=== PATIENT | female | born 1965 | race African-American/Black ===

== ENCOUNTER 2017-09-05 10:55 | Emergency (ER) | payer OTHER ==
[~2017-09-05] VITALS: Ht 162.6 cm; Wt 109.1 kg
[2017-09-05] MEDS ORDERED: METF500T4 PO (12:14)
[2017-09-05] MEDS ORDERED: FENO160 PO (12:14)
[2017-09-05] MEDS ORDERED: LEVO200 PO (12:14)
[2017-09-05] MEDS ORDERED: LUPR3.75 IM (12:14)
[2017-09-05] MEDS ORDERED: DULA1.5P IM (12:15)
[2017-09-05] MEDS ORDERED: PRAZ5 PO (12:15)
[2017-09-05] MEDS ORDERED: HYDR25TA PO (12:15)
[2017-09-05] MEDS ORDERED: FERR-89 PO (12:15)
[2017-09-05] MEDS ORDERED: CETI-290 PO (12:15)
[2017-09-05] MEDS ORDERED: ESCI20TA PO (12:15)
[2017-09-05] MEDS ORDERED: ZOLP5 PO (12:15)
[2017-09-05] MEDS ORDERED: ASPI-1182 PO (12:15)
[2017-09-05] MEDS ORDERED: INSU300I SQ (12:15)
[2017-09-05] MEDS ORDERED: OXYB5XL PO (12:15)
[2017-09-05] MEDS ORDERED: GABA-531 PO (12:15)
[2017-09-05] MEDS ORDERED: METOCLOPRAMIDE HCL 5 MG/ML 2 ML VIAL IVP ONE (12:30)
[2017-09-05] MEDS ORDERED: KETOROLAC TROMETHAMINE 30 MG/ML VIAL IVP ONE (12:30)
[2017-09-05] MEDS ORDERED: SODIUM CHLORIDE 0.9% 1,000 ML IV ONE ×2 (12:30→13:15)
[2017-09-05 12:47] LABS: BASOPHILS % (AUTO) 0.8 % (0.0-2.0); EOSINOPHILS % (AUTO) 2.3 % (1.0-6.0); HEMOGLOBIN 13.5 g/dL (12.0-16.0); LYMPHOCYTES # (AUTO) 1.2 K/uL (1.0-4.8); LYMPHOCYTES % (AUTO) 12.2 % (22.0-44.0); MEAN CORPUSCULAR HEMOGLOBIN 28.8 pg (26.0-34.0); MEAN CORPUSCULAR HGB CONC 33.9 G/dL (31.0-37.0); MEAN CORPUSCULAR VOLUME 85 fL (80-100); MONOCYTES # (AUTO) 0.3 K/uL (0.1-1.0); MONOCYTES % (AUTO) 3.6 % (2.0-9.0); NEUTROPHILS # (AUTO) 7.7 K/uL (1.8-7.7); NEUTROPHILS % (AUTO) 81.1 % (40.0-70.0); PLATELET COUNT (AUTO) 332 K/uL (150-450); RED BLOOD CELL COUNT(AUTO) 4.69 MIL/uL (4.00-5.20); RED CELL DISTRIBUTION WIDTH 13.6 % (11.5-14.5)
[2017-09-05 12:49] LABS: APPEARANCE,URINE CLOUDY (CLEAR); BILIRUBIN,URINE NEGATIVE (NEGATIVE); GLUCOSE, URINE (UA) >=1000 mg/dL (NEGATIVE); KETONES,URINE TRACE mg/dL (NEGATIVE); LEUKOCYTE ESTERASE ,URINE SMALL (NEGATIVE); NITRATE,URINE NEGATIVE (NEGATIVE); OCCULT BLOOD,URINE TRACE (NEGATIVE); PROTEIN,URINE SEE CONFIRM (NEGATIVE); UROBILINOGEN,URINE 0.2 mg/dL (<=1.0)
[2017-09-05 12:57] LABS: SULFOSALICYLIC ACID,URINE Trace (Negative)
[2017-09-05 12:59] LABS: BACTERIA,URINE Few /HPF (None Seen); RBC,URINE 0-2 /HPF (0-2); SQUAMOUS EPITHELIAL CELL,UR Moderate /LPF (None Seen); WBC,URINE 26-50 /HPF (0-5)
[2017-09-05 13:03] LABS: ALBUMIN 2.9 g/dL (3.4-5.0); ALKALINE PHOSPHATASE 129 U/L (46-116); ANION GAP 16 mmol/L (8-16); BILIRUBIN,TOTAL 0.4 mg/dL (0.1-1.0); CALCIUM, TOTAL 8.5 mg/dL (8.8-10.5); CARBON DIOXIDE 21 mmol/L (22-29); CHLORIDE 85 mmol/L (98-107); CREATININE 1.11 mg/dL (0.60-1.30); GLOMERULAR FILTR. RATE CALC > 60 mL/min (>60); POTASSIUM 4.2 mmol/L (3.5-5.1); TOTAL PROTEIN, SERUM 7.9 g/dL (6.4-8.2); UREA NITROGEN, BLOOD 15 mg/dL (7-18)
[2017-09-05 13:06] LABS: GLUCOSE,RANDOM 531 mg/dL (70-110); SODIUM SERUM 122 mmol/L (136-145)
[2017-09-05] MEDS ORDERED: INSULIN REGULAR, HUMAN 100 UNITS/ML IVP ONE (13:15)
[2017-09-05 13:21] LABS: ALANINE AMINOTRANSFERASE 48 U/L (12-78); ASPARTATE AMINOTRANSFERASE 83 U/L (15-37)
[2017-09-05 13:23] LABS: B-TYPE NATRIURETIC PEPTIDE 39 pg/mL (0-100)
[2017-09-05 14:35] LABS: ANION GAP 11 mmol/L (8-16); CALCIUM, TOTAL 7.8 mg/dL (8.8-10.5); CARBON DIOXIDE 28 mmol/L (22-29); CHLORIDE 91 mmol/L (98-107); CREATININE 1.09 mg/dL (0.60-1.30); GLOMERULAR FILTR. RATE CALC > 60 mL/min (>60); GLUCOSE,RANDOM 394 mg/dL (70-110); SODIUM SERUM 130 mmol/L (136-145); UREA NITROGEN, BLOOD 14 mg/dL (7-18)
[2017-09-05 14:37] LABS: POTASSIUM 2.7 mmol/L (3.5-5.1)
[2017-09-05] MEDS ORDERED: POTASSIUM CHLORIDE 40 MEQ in SODIUM CHLORIDE 0.45% 1,000 ML IV ONE (15:15)
[2017-09-05] MEDS ORDERED: POTASSIUM CHLORIDE 20 MEQ ER TABLET PO ONE (15:15)
[2017-09-05 15:28] LABS: GLUCOSE,POINT OF CARE 351 MG/DL (70-110)
[2017-09-05] MEDS ORDERED: HYDROCODONE/ACETAMINOPHEN 5-325 MG TABLET PO ONE (16:00)
[2017-09-05] MEDS ORDERED: ACETAMINOPHEN 325 MG TABLET PO ONE (16:00)
[2017-09-05 18:02] VITALS: BP 139/69
== END 2017-09-05 18:33 | disposition home or self-care (01) ==
LOC: EMS 10:56
DX: R51 Headache (principal); J32.9 Chronic sinusitis, unspecified; E11.65 Type 2 diabetes mellitus with hyperglycemia; E87.6 Hypokalemia; I10 Essential (primary) hypertension; E11.9 Type 2 diabetes mellitus without complications; E78.00 Pure hypercholesterolemia, unspecified; F17.210 Nicotine dependence, cigarettes, uncomplicated
CPT/HCPCS: 36415; 80048; 80053; 81001; 82962; 83880; 85025; 87077; 87086; 87186; 96361; 96365; 96375; 99285; 99406; J1815; J1885; J2765; J3480; J7030

== ENCOUNTER 2018-07-28 15:05 | Emergency (ER) | payer OTHER ==
[~2018-07-28] VITALS: Ht 162.6 cm; Wt 90.9 kg
[~2018-07-28 15:05] MED LIST: ASPI-1182 PO; CETI10TA59 PO; DULA1.5P IM; ESCI20TA PO; FENO160 PO; FERR-89 PO; GABA-531 PO; HYDR25TA PO; INSU300I SQ; LEVO200 PO; LUPR3.75 IM; METF-960 PO; OXYB5XL PO; PRAZ5 PO; ZOLP5 PO
[2018-07-28 15:19] LABS: GLUCOSE,POINT OF CARE 185 MG/DL (70-110)
[2018-07-28] MEDS ORDERED: LEVE500T53 PO (15:26)
[2018-07-28] MEDS ORDERED: DIVA-76 PO (15:26)
[2018-07-28] MEDS ORDERED: BECL10.6 IH (15:26)
[2018-07-28] MEDS ORDERED: HYD25 PO (15:26)
[2018-07-28] MEDS ORDERED: LISI-662 PO (15:26)
[2018-07-28] MEDS ORDERED: MIRT15 PO (15:26)
[2018-07-28] MEDS ORDERED: ESCI20TA PO (15:26)
[2018-07-28] MEDS ORDERED: LORA10TA7 PO (15:26)
[2018-07-28] MEDS ORDERED: INSU100V37 SQ (15:26)
[2018-07-28] MEDS ORDERED: ALBU8HFA IH (15:26)
[2018-07-28] MEDS ORDERED: LURA20TA PO (15:26)
[2018-07-28] MEDS ORDERED: METO25 PO (15:26)
[2018-07-28] MEDS ORDERED: ATOR10TA84 PO (15:26)
[2018-07-28] MEDS ORDERED: GEMF600T5 PO (15:26)
[2018-07-28] MEDS ORDERED: ACETAMINOPHEN 500 MG TABLET PO ONE (16:15)
[2018-07-28] MEDS ORDERED: LIDOCAINE 1% 10 ML VIAL INJ ONE (16:15)
[2018-07-28 17:10] VITALS: BP 116/77
== END 2018-07-28 17:36 | disposition home or self-care (01) ==
LOC: EMS 15:06
DX: L02.31 Cutaneous abscess of buttock (principal); I10 Essential (primary) hypertension; E11.9 Type 2 diabetes mellitus without complications; E78.00 Pure hypercholesterolemia, unspecified; E03.9 Hypothyroidism, unspecified; F17.210 Nicotine dependence, cigarettes, uncomplicated; Z88.0 Allergy status to penicillin; Z88.2 Allergy status to sulfonamides; Z79.82 Long term (current) use of aspirin; Z79.899 Other long term (current) drug therapy; Z79.84 Long term (current) use of oral hypoglycemic drugs
CPT/HCPCS: 10060; 82962; 87070; 87077; 87186; 87205; 99283; 99406; J3490